=== PATIENT | female | born 1945 | race Caucasian/White ===

== ENCOUNTER 2021-02-25 13:51 | Emergency (ER) | payer MEDICARE ==
[2021-02-25] MEDS ORDERED: Boostrix 0.5 ML (Tdap) VIAL ONE (14:55)
== END 2021-02-25 15:59 | disposition home or self-care (01) ==
LOC: CSHERS 13:51
DX: S00.83XA Contusion of other part of head, initial encounter (principal); I10 Essential (primary) hypertension; W19.XXXA Unspecified fall, initial encounter
CPT/HCPCS: 70450; 90471; 90715

== ENCOUNTER 2024-10-30 10:12 | Outpatient (CLI) | payer OTHER ==
[2024-10-30] MEDS ORDERED: Iopamidol 370 76% 100 ML VIAL ONE (10:32)
[2024-10-30 10:56] LABS: Estimated GFR - POC 58.0
== END 2024-10-30 10:13 | disposition home or self-care (01) ==
LOC: CSHCT 10:12
PROVIDERS: ATTEND Family Medicine
DX: I1A.0 Resistant hypertension (principal)
CPT/HCPCS: 36415; 74175; 82565